=== PATIENT | female | born 1970 | race African-American/Black ===

== ENCOUNTER 2022-06-29 11:46 | Emergency (ER) | payer OTHER ==
[~2022-06-29] VITALS: Ht 160 cm; Wt 68.0 kg
[2022-06-29] MEDS ORDERED: LIDOCAINE HCL/PF 1% 10 MG/ML 5ML VIAL INFIL ONE (12:15)
[2022-06-29] MEDS ORDERED: BACITRACIN ZINC OINT UDPKT TOP ONE (12:15)
[2022-06-29] MEDS ORDERED: LIDOCAINE HCL/EPINEPHRINE 1%-EPI 1:100,000 20 ML VIAL INFIL ONE (12:15)
[2022-06-29] MEDS ORDERED: ACETAMINOPHEN 325MG TABLET PO ONE (12:15)
[2022-06-29] MEDS ORDERED: IBUP-2028 MT (14:24)
[2022-06-29 14:45] VITALS: BP 137/91
== END 2022-06-29 14:46 | disposition home or self-care (01) ==
LOC: ER 12:28
DX: S01.111A Laceration without foreign body of right eyelid and periocular area, initial encounter (principal); S01.81XA Laceration without foreign body of other part of head, initial encounter; M25.561 Pain in right knee; M79.89 Other specified soft tissue disorders; W01.198A Fall on same level from slipping, tripping and stumbling with subsequent striking against other object, initial encounter; Y93.01 Activity, walking, marching and hiking; Y92.89 Other specified places as the place of occurrence of the external cause
CPT/HCPCS: 12014; 70450; 73560; 99284; J3490